=== PATIENT | male | born 1950 | race Caucasian/White ===

== ENCOUNTER 2019-05-28 08:47 | Inpatient (IN) ==
--- NOTE | 2019-05-25 08:27 | Anesthesiology Consultation ---
Date of Service May 25, 2019 Assessment & Plan (1) Encounter for pre-operative examination: PCP: 05/24/19: "cleared for surgery" Chart Review Chart Review: Acceptable Risk for Surgery (pending preop testing) and Patient NOT seen in Pre Admission Testing History Surgery Operation Date: 05/28/19 11:30 Proposed Procedures p Right Knee Removal of Antibiotic Spacer, Conversion Revision Arthroplasty - Cruz Byrnes Height/Weight Height: 6 ft Weight: 79.832 kg Allergies Allergy/AdvReac Type Severity Reaction Status Date / Time nafcillin Allergy Intermediate SWELLING Verified 05/24/19 14:07 Medications Home Medications Medication Instructions Recorded Confirmed Last Taken amlodipine [Norvasc] 2.5 mg PO QAM 05/24/19 05/24/19 Unknown aspirin 81 mg PO BID 05/24/19 05/24/19 Unknown docusate sodium [Stool Softener] 200 mg PO HS 05/24/19 05/24/19 Unknown ferrous sulfate [FeroSul] 325 mg PO DAILY 05/24/19 05/24/19 Unknown metoprolol succinate 12.5 mg PO BID 05/24/19 05/24/19 Unknown rosuvastatin [Crestor] 40 mg PO HS 05/24/19 05/24/19 Unknown Past Medical History Medical History Hyperlipidemia Hypertension Osteoarthritis Stroke 09/2017= no deficits Past Family History Family History Other No significant family history Past Surgical History Surgical History H/O knee surgery RT KNEE INFECTION POST TKA (CEMENT SPACER IN CURRENTLY) History of colonoscopy History of loop recorder implanted after stroke (09/2017)- no noted findings History of tonsillectomy History of tooth extraction History of total knee replacement RT/LEFT Social History Smoking Status: Former smoker tobacco type: cigarettes Do You Dip or Chew Tobacco: No Smoking End Date: 15 YEARS AGO Hx Alcohol Use: Yes Alcohol type: beer alcohol intake frequency: a few times a month Hx Substance Use: No substance use type: does not use
--- NOTE | 2019-05-26 13:42 | History & Physical Report ---
Date of Service May 26, 2019 Assessment & Plan (1) Infection of prosthetic knee joint: plan is to admit and remove spacer and conversion to right tka revision. will also do frozen sections at time of surgery. History of Present Illness Chief Complaint: right knee pain , s/p explant right tka for infection Primary Care Provider: Abimael Hoffyessica meenu male who had previous infection of right knee. currently has spacer in place which is static. had recent lab work and aspiration which were negative. He is now ready for removal of spacer and conversion to right tka, revision. Allergies Allergy/AdvReac Type Severity Reaction Status Date / Time nafcillin Allergy Intermediate SWELLING Verified 05/24/19 14:07 Home Medications Home Medications Medication Instructions Recorded Confirmed Type amlodipine [Norvasc] 2.5 mg PO QAM 05/24/19 05/24/19 History aspirin 81 mg PO BID 05/24/19 05/24/19 History docusate sodium [Stool Softener] 200 mg PO HS 05/24/19 05/24/19 History ferrous sulfate [FeroSul] 325 mg PO DAILY 05/24/19 05/24/19 History metoprolol succinate 12.5 mg PO BID 05/24/19 05/24/19 History rosuvastatin [Crestor] 40 mg PO HS 05/24/19 05/24/19 History Past Med/Surg History Medical History Hyperlipidemia Hypertension Osteoarthritis Stroke 09/2017= no deficits Surgical History H/O knee surgery RT KNEE INFECTION POST TKA (CEMENT SPACER IN CURRENTLY) History of colonoscopy History of loop recorder implanted after stroke (09/2017)- no noted findings History of tonsillectomy History of tooth extraction History of total knee replacement RT/LEFT Family History Other No significant family history Social History Preferred Language: Yi Communication Ability: Effective Jacquard Loom Card Changer Required: No Beliefs That Will Affect Care: None Current Living Situation: Spouse Feels Safe at Home: Yes Smoking Status: Former smoker Tobacco Type: cigarettes ; Second Hand Exposure: No ; Hx Alcohol Use: Yes Alcohol type: beer Hx Substance Use: No Review of Systems All systems reviewed & are unremarkable except as noted in HPI & below Physical Exam Constitutional: WD/WN, vitals as above Neck: trachea midline, no thyromegaly Respiratory: normal respiratory effort, lungs clear to auscultation Cardiovascular: RRR, no murmur, no edema Gastrointestinal (Abdomen): normal bowel sounds, soft, nontender, no hepatosplenomegaly Musculoskeletal: Knee: + surgical incision, + limited ROM of knee and + knee ROM with crepitation
[~2019-05-28 08:47] MED LIST: ACETAMINOPHEN 500 MG TAB PO SCH; BUPIVACAINE 0.5 % 5 MG/1 ML PF 10ML VIAL ONE; CEFAZOLIN 2000MG 2,000 MG/15 ML SYR IV SCH; CeleBREX 200 MG CAP PO SCH; FAMOTIDINE 20 MG TAB PO SCH; LIDOCAINE HCL 2% 2 ML VIAL/AMP(20MG/ML) INFIL ONE; LR 15ML/HR IV SCH; METOCLOPRAMIDE HCL 10 MG TABLET PO SCH; MIDAZOLAM HCL 1 MG/ML 2ML VIAL ONE; PHENYLEPHRINE 100MCG/ML 5ML SYR ONE; PROPOFOL IV EMULSION 10 MG/ML 20 ML VIAL IV ONE; ROPIVACAINE 0.5% HCL/PF 150 MG, BUPIVACAINE 0.5% MPF 30 ML, EPINEPHrine 30MG/30ML (OR U... INSTIL SCH; SODIUM CHLORIDE 0.9% 1,000 ML IV SCH; TRANEXAMIC ACID 1,000 MG **IV Intra-op IV SCH; TRANEXAMIC ACID 1,000 MG **IV Pre-op IV SCH; dexAMETHasone 4 MG TAB PO SCH; ePHEDrine sulfate 50 MG/ML SYR ONE; fentaNYL citrate 100 MCG/2 ML VIAL ONE
--- NOTE | 2019-05-28 09:15 | History & Physical Bridge Note ---
Date of Service May 28, 2019 History & Physical Bridge Note I have examined the patient, reviewed the History & Physical and in the interval since the performance of the History & Physical I have noted the following changes of clinical significance: no changes noted
[2019-05-28] MEDS ORDERED: BACITRACIN INJ 50,000 UNIT VIAL ONE (09:28)
[2019-05-28] MEDS ORDERED: ORTHO JOINT ANESTHETIC ONE (09:28)
[2019-05-28] MEDS ORDERED: ONDANSETRON INJ 2 MG/ML 2 ML VIAL IV PRN ×2 (09:52→13:23)
[2019-05-28] MEDS ORDERED: fentaNYL citrate 100 MCG/2 ML VIAL IV PRN (09:52)
[2019-05-28] MEDS ORDERED: ePHEDrine sulfate 50 MG/ML AMP IV PRN (09:52)
[2019-05-28] MEDS ORDERED: ATROPINE SULFATE 0.1 MG/ML 10ML SYR IV PRN (09:52)
[2019-05-28] MEDS ORDERED: VANCOMYCIN HCL 1 GM/270 ML BAG ONE (10:30)
[2019-05-28] MEDS ORDERED: VANCOMYCIN CONSULT ACTIVE PRN (10:31)
--- NOTE | 2019-05-28 12:16 | Post Operative Brief Note ---
Immediate Post Op Note v1 Date of Surgery May 28, 2019 Pre & Post Diagnosis Operation Date: 05/28/19 11:00 Pre-Op Diagnosis: Infection of prosthetic knee joint Post-Op Diagnosis: Infection of prosthetic knee joint I identified the patient and participated in the time-out.: Yes Procedure Operation Date: 05/28/19 11:00 Actual Procedures p Right Knee Removal of Antibiotic Spacer, Conversion Revision Total Knee Arthroplasty(Right) Both components - Cruz Byrnes Surgeon Cruz Byrnes Supervisor Records Change Juan Calle PAC Estimated Blood Loss 10 Findings Consistent with Post-Op Diagnosis Specimens 5 tissue samples sent for frozen section, all negative except one which had 6 wbc/hpf Anesthesia Type MAC Spinal Regional Complications none Disposition Disposition: Recovery Room
[2019-05-28] MEDS ORDERED: bisacodyL 10 MG SUPP PR PRN (13:23)
[2019-05-28] MEDS ORDERED: METOCLOPRAMIDE HCL INJ 5 MG/ML 2 ML VIAL IV PRN (13:23)
[2019-05-28] MEDS ORDERED: NALOXONE HCL 0.4 MG/1 ML VIAL/CARP IV PRN (13:23)
[2019-05-28] MEDS ORDERED: MAGNESIUM HYDROXIDE SUSP 30 ML UDC PO PRN (13:23)
[2019-05-28] MEDS ORDERED: HYDROmorphone INJ 0.5 MG/0.5 ML SYR IV PRN (13:25)
--- NOTE | 2019-05-28 13:55 | Anesthesiology Progress Note ---
Date of Service May 28, 2019 Anesthesia Post Procedure Vital Signs Vital Signs: Temp Pulse Pulse Resp BP BP Pulse Ox 05/28/19 13:50 75 19 103/65 100 05/28/19 13:40 74 16 112/72 100 05/28/19 13:30 73 15 115/69 100 05/28/19 13:20 68 16 100/62 100 05/28/19 13:10 70 19 97/63 L 100 05/28/19 13:03 98.1 F 73 20 106/66 100 05/28/19 09:57 79 20 121/81 100 Pain Intensity Right Knee: Pain Intensity: 0 Transfer of Care Handoff Completed per policy Notes Mental Status: alert / awake / arousable and participated in evaluation Patient Amnestic to Procedure: Yes Nausea / Vomiting: adequately controlled Pain: adequately controlled Airway Patency, RR, SpO2: stable & adequate BP & HR: stable & adequate Hydration State: stable & adequate Neuraxial Anesthesia: was administered and sensory block is resolving Anesthetic Complications: no major complications apparent and Pt Satisfied with anesthetic care
--- NOTE | 2019-05-28 14:06 | XRay Report ---
RIGHT KNEE 2 VIEWS History: Right total knee arthroplasty. Degenerative arthritis. Postop. FINDINGS: The patient is status post a right total knee arthroplasty. The hardware is intact. No frac ture or dislocation. Skin tg and surgical drains are in place. IMPRESSION: Right total knee arthroplasty. No evidence for hardware complication. Electronically signed by: Santiago Castro M.D. 05/28/2019 2:05 PM
[2019-05-28] MEDS: SODIUM CHLORIDE 0.9% 1000ML 1,000 ML IV SCH ×2 (15:00→23:28)
[2019-05-28] MEDS: ACETAMINOPHEN 500 MG TAB PO SCH ×2 (16:10→22:07)
[2019-05-28] MEDS: FERROUS GLUCONATE 324 MG TAB PO SCH (16:12)
[2019-05-28] MEDS: OXYCODONE HCL IR 5 MG TAB (IMMEDIATE RELEASE) PO PRN ×2 (16:43→21:12)
[2019-05-28] MEDS: CEFAZOLIN 2000MG 2,000 MG/15 ML SYR IV SCH (19:07)
[2019-05-28] MEDS ORDERED: SENNA 8.6 MG TAB PO SCH (21:00)
[2019-05-28] MEDS: ASPIRIN 81 MG ECTAB PO SCH (21:13)
[2019-05-28] MEDS: DOCUSATE SODIUM 100 MG CAP PO SCH (21:13)
[2019-05-29] MEDS: CEFAZOLIN 2000MG 2,000 MG/15 ML SYR IV SCH (02:51)
[2019-05-29] MEDS: OXYCODONE HCL IR 5 MG TAB (IMMEDIATE RELEASE) PO PRN ×2 (05:15→12:16)
[2019-05-29] MEDS: ACETAMINOPHEN 500 MG TAB PO SCH (05:17)
[2019-05-29 05:35] LABS: Hematocrit (blood only) 29.2 % (42-52); Hemoglobin 10.1 g/dL (14.0-18.0); Mean Corpuscular Hemoglobin 29.2 pg (25-34); Mean Corpuscular Hgb Conc 34.6 g/dL (32-36); Mean Corpuscular Volume 84.4 fL (80-100); Mean Platelet Volume 10.8 fL (7.4-10.4); Platelet Count 180 K/uL (130-400); RDW Coefficient of Variation 15.6 % (11.5-14.5); RDW Standard Deviation 48.3 fL (36.4-46.3); Red Blood Count 3.46 M/uL (4.7-6.1)
[2019-05-29] MEDS ORDERED: VANCOMYCIN HCL 1,000 MG/270 ML BAG IV SCH (06:00)
[2019-05-29 06:03] LABS: BUN Creatinine Ratio 18.1 (10-20); Calcium 8.7 mg/dl (8.5-10.1); Est GFR (Non-African American) 42.3; Potassium 4.6 mmol/L (3.5-5.1)
[2019-05-29] MEDS: ASPIRIN 81 MG ECTAB PO SCH (07:29)
[2019-05-29] MEDS: DOCUSATE SODIUM 100 MG CAP PO SCH (07:29)
[2019-05-29] MEDS: FERROUS GLUCONATE 324 MG TAB PO SCH (07:29)
--- NOTE | 2019-05-29 07:46 | Anesthesiology Progress Note ---
Date of Service May 29, 2019 Anesthesia Post Procedure Vital Signs Vital Signs: Temp Pulse Pulse Resp BP BP Pulse Ox 05/29/19 07:00 36.5 C 81 16 145/80 H 100 05/29/19 03:00 36.5 C 75 16 127/75 99 05/28/19 23:55 36.9 C 85 18 118/69 98 05/28/19 20:10 36.7 C 88 18 115/76 100 05/28/19 17:30 36.7 C 83 18 116/75 100 05/28/19 16:29 36.5 C 70 18 118/74 100 05/28/19 15:33 37.4 C 75 18 103/63 100 05/28/19 15:05 36.4 C L 73 16 115/69 100 05/28/19 14:37 36.6 C 78 18 108/63 100 05/28/19 14:15 77 16 117/67 99 05/28/19 14:00 36.7 C 73 15 109/65 100 05/28/19 13:50 75 19 103/65 100 05/28/19 13:40 74 16 112/72 100 05/28/19 13:30 73 15 115/69 100 05/28/19 13:20 68 16 100/62 100 05/28/19 13:10 70 19 97/63 L 100 05/28/19 13:03 36.7 C 73 20 106/66 100 05/28/19 09:57 79 20 121/81 100 Pain Intensity Right Knee: Pain Intensity: 0 Notes Mental Status: alert / awake / arousable and participated in evaluation Patient Amnestic to Procedure: Yes Nausea / Vomiting: adequately controlled Pain: adequately controlled Airway Patency, RR, SpO2: stable & adequate BP & HR: stable & adequate Hydration State: stable & adequate Neuraxial Anesthesia: was administered and sensory block resolved Anesthetic Complications: no major complications apparent and Pt Satisfied with anesthetic care
--- NOTE | 2019-05-29 07:49 | Operative Report ---
DATE OF OPERATION: 05/28/2019 PREOPERATIVE DIAGNOSIS: Infection, right total knee. POSTOPERATIVE DIAGNOSIS: Infection, right total knee. PROCEDURE: Removal of antibiotic spacer and conversion to revision total knee replacement, both components. SURGEON: Dr. Justyn Byrnes DO FUNDRAISING MANAGER: Juan Whitmore PA-C. ANESTHESIA: Spinal. COMPLICATIONS: Zero. The patient tolerated the procedure well and transferred to recovery room in stable condition. Five frozen sections were sent for examination, four which were negative, five was positive for 6 white blood cells per high power field. IMPLANTS USED: Karlene triathlon TS size 6 femoral component with a 20 x 100 mm cemented stem, multiple augments distally and posteriorly. A size 6 universal baseplate with a size D metaphyseal augment and a size 13 TS insert and size 38 all poly patella. INDICATIONS: Mr. Dill is a pleasant male who complains of right knee pain. 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 He underwent an explantation of his right knee prosthesis and now scheduled for revision total knee arthroplasty. DESCRIPTION OF PROCEDURE: The patient was brought to the operating room, properly identified by myself and the OR staff. He was given a spinal anesthetic, placed on the operating table in a supine position. Tourniquet was applied to the right upper thigh. The right leg was then prepped and draped in standard orthopedic fashion. I made a standard midline approach of the old incision, dissected down through subcutaneous tissue. I then made large full thickness skin flaps both the medial and lateral side. Then perform a medial capsulotomy with the use of Bovie and knife. I was able to remove all the scar tissue from the medial and lateral gutters in order to help mobilize the patella. I then had to also perform a quadriceps snip of the quadriceps as well to help mobilize the patella laterally. Then removed all the static cement spacer from the right knee in its entirety. I performed a large synovectomy as well. Five frozen sections were sent for analysis. Then reamed the canal on both the femur and tibia to the appropriate depth and size. I made a cleanup cuts on the femur measured to be size 6. The size 6 guide was then put into place in approximately 3 degrees of external rotation with respect to the posterior condylar axis and parallel to the transepicondylar axis. Then continue with the tibia, made a clamp, cut on the tibia as well. Trial components were placed with great range of motion and very good stability and the patella did sublux slightly but was much better improved with a lateral release. I thoroughly irrigated the wound and impacted components in place using antibiotic cement. All excess cement was then removed, irrigated again, closed the capsule with a 0 Vicryl suture deep and #2-0 Vicryl and tg. A sterile dressing was applied. The patient was taken to the recovery room in stable condition. My PA assisted the entire case due to the complexity of the case. He was present during the positioning, prepping, draping and holding instruments throughout the entirety of this case. I attest to the content of the Intraoperative Record and any orders documented therein. Any exceptions are noted below. BALTAZAR
--- NOTE | 2019-05-29 08:25 | Orthopedic Progress Note ---
Date of Service May 29, 2019 Assessment & Plan (1) History of infection of total joint prosthesis of knee: Postop day 1 status post explant antibiotic spacer with implantation of revision right TKA. Begin PT and OT protocols. Weightbearing as tolerated with immobilizer on. He is allowed to have the immobilizer off while in bed. DVT prophylaxis with aspirin twice daily, SCDs. Pain management with acetaminophen, oxycodone, hydromorphone DC planning-patient is planning on home health services upon discharge. Subjective Patient sitting up in bed. Awake, alert. No complaints this morning. Pain is controlled. Denies shortness of breath, chest pain, lightheadedness. Physical Exam Physical Exam: Dressings are clean, dry, and intact. Calves are soft and nontender. Neurovascular is intact. Toes are mobile. Hemovac drainage was 100 mL's from the previous shift. Results & Data Vital Signs (Past 12 Hours) Vital Signs Temp Pulse Resp BP Pulse Ox 05/29/19 07:00 36.5 C 81 16 145/80 H 100 05/29/19 03:00 36.5 C 75 16 127/75 99 05/28/19 23:55 36.9 C 85 18 118/69 98 Laboratory Results Laboratory Results WBC 10.80 K/uL (4.8-10.8) 05/29/19 04:53 RBC 3.46 M/uL (4.7-6.1) L 05/29/19 04:53 Hgb 10.1 g/dL (14.0-18.0) L 05/29/19 04:53 Hct 29.2 % (42-52) L 05/29/19 04:53 MCV 84.4 fL (80-100) 05/29/19 04:53 MCH 29.2 pg (25-34) 05/29/19 04:53 MCHC 34.6 g/dL (32-36) 05/29/19 04:53 RDW Std Deviation 48.3 fL (36.4-46.3) H 05/29/19 04:53 RDW Coeff of Claudia 15.6 % (11.5-14.5) H 05/29/19 04:53 Plt Count 180 K/uL (130-400) 05/29/19 04:53 MPV 10.8 fL (7.4-10.4) H 05/29/19 04:53 Sodium 138 mmol/L (136-145) 05/29/19 04:53 Potassium 4.6 mmol/L (3.5-5.1) 05/29/19 04:53 Chloride 107 mmol/L (98-107) 05/29/19 04:53 Carbon Dioxide 21 mmol/L (21-32) 05/29/19 04:53 Anion Gap 10.0 (3-11) 05/29/19 04:53 BUN 30 mg/dl (7-18) H 05/29/19 04:53 Creatinine 1.66 mg/dl (0.6-1.4) H 05/29/19 04:53 Est Cr Clr Drug Dosing 48.0 ml/min 05/29/19 04:53 Est GFR ( Amer) 49.0 05/29/19 04:53 Est GFR (Non-Af Amer) 42.3 05/29/19 04:53 BUN/Creatinine Ratio 18.1 (10-20) 05/29/19 04:53 Glucose 122 mg/dl (70-99) H 05/29/19 04:53 Calcium 8.7 mg/dl (8.5-10.1) 05/29/19 04:53 Blood Type O Positive 05/28/19 09:20 Antibody Screen NEGATIVE 05/28/19 09:20 Crossmatch See Detail 05/28/19 09:20
[2019-05-29] MEDS ORDERED: MULTIVITAMIN TAB PO SCH (09:00)
--- NOTE | 2019-06-01 14:35 | Discharge Summary ---
Date of Service June 01, 2019 Admission HPI Per Admitting Provider meenu male who had previous infection of right knee. currently has spacer in place which is static. had recent lab work and aspiration which were negative. He is now ready for removal of spacer and conversion to right tka, revision. Admission Exam Per Admitting Provider Constitutional: WD/WN, vitals as above Neck: trachea midline, no thyromegaly Respiratory: normal respiratory effort, lungs clear to auscultation Cardiovascular: RRR, no murmur, no edema Gastrointestinal (Abdomen): normal bowel sounds, soft, nontender, no hepatosplenomegaly Musculoskeletal: Knee: + surgical incision, + limited ROM of knee and + knee ROM with crepitation Principal Diagnosis Status post infection right TKA Discharge Exam Subjective Patient sitting up in bed. Awake, alert. No complaints this morning. Pain is controlled. Denies shortness of breath, chest pain, lightheadedness. Physical Exam Physical Exam: Dressings are clean, dry, and intact. Calves are soft and nontender. Neurovascular is intact. Toes are mobile. Hemovac drainage was 100 mL's from the previous shift. Discharge Data Allergies Allergy/AdvReac Type Severity Reaction Status Date / Time nafcillin Allergy Intermediate SWELLING Verified 05/28/19 09:52 Consultations 05/28/19 13:24 Consult Case Management - Discharge Planning Routine Procedures Performed Operation Date: 05/28/19 11:00 Actual Procedures p Right Knee Removal of Antibiotic Spacer, Conversion Revision Arthroplasty(Right) - Cruz Hawk Ordered Studies 05/28/19 05:00 US - OR guided needle placemen Routine Hospital Course (1) History of infection of total joint prosthesis of knee: Patient was admitted on the above-noted date and had the above-noted surgery performed which tarda well. On his first postoperative day,He was sitting up in bed awake and alert. He had no complaints; pain was controlled. Denies shortness of breath, chest pain, lightheadedness. Dressings were clean, dry, and intact. Calves are soft nontender. Neurovascular was intact. Toes are mobile. Hemovac drainage was 100 mL from the previous shift. He was started on physical therapy and occupational therapy protocols. Weightbearing as tolerated with immobilizer on. He was continued on DVT prophylaxis and pain management. He was checked later that morning after PT and he was progressing well. Vital signs remained stable and he was afebrile. Hemoglobin was 10.1. He was remaining stable and was felt he be discharged home. Total Time Total Time Spent Total Time Spent (In Minutes): 5 Discharge Plan Discharge Items Patient Disposition: Home - Home Health Services Reason For Visit: Aftercare Following Joint Replacement Discharge Diagnosis: s/p infected right TKA /Revision R TKA Activity: Per Instructions section Weightbearing: Right weightbearing Weightbearing Comment: as tolerated with immobilzer. Non-emergency contact: Surgeon Call non-emergency contact if: your pain is not controlled, your temperature is above 101.5, your wound has increased redness and your wound has increased drainage Follow-up/Referrals: Abimael Burroughs [Primary Care Provider] - Diet: Regular Ambulatory Orders: Basic Metabolic Panel (Routine) Timeframe: 2 Days Location: Determined by Patient Ordered By: Juan Bourne Attending Provider Instructions: Please follow Dr. Hawk's total knee replacement instruction sheets as written. These will be given to at your time of discharge. You are allowed to remove the immobilizer while at rest. Plan to sleep with it on. A prescription has been sent with you for blood work to be drawn in a few days by [facility]. Results to be sent to your Primary Care Physician. Follow-up with Dr. Li in 2 weeks. Please call for appointment if one has not been made for you. [phone] Pending Studies at Discharge: Yes Studies:: Surgical cultures Pathology report Stand-Alone Forms: [facility], Opioid Pain Management, Smoking Cessation Medications and DC Order Prescriptions: New aspirin [Ecotrin Low Strength] 81 mg Tablet,Delayed Release (Dr/Ec) 81 mg PO BID 30 Days Qty: 60 RF: 0 acetaminophen [Tylenol Extra Strength] 500 mg Tablet 1,000 mg PO Q8 14 Days Qty: 84 RF: 0 doxycycline hyclate 100 mg capsule 100 mg PO BID 42 Days Qty: 84 RF: 1 oxycodone 5 mg Tablet 5 mg PO Q4H PRN (Reason: pain) Qty: 18 RF: 0 Continued amlodipine [Norvasc] 2.5 mg Tablet 2.5 mg PO QAM RF: 0 ferrous sulfate [FeroSul] 325 mg (65 mg iron) Tablet 325 mg PO DAILY RF: 0 metoprolol succinate 25 mg Tablet Extended Release 24 Hr 12.5 mg PO BID RF: 0 docusate sodium [Stool Softener] 100 mg Tablet 200 mg PO HS RF: 0 rosuvastatin [Crestor] 40 mg Tablet 40 mg PO HS RF: 0 Discontinued aspirin 81 mg Tablet,Delayed Release (Dr/Ec) 81 mg PO BID RF: 0 Discharge Orders: Discharge Order (Routine); Ordered 05/29/19 Ordered By: Juan Fox/Other Patient Handouts: Surgery Prevent DVT After Admission Data Admit Date/Time: 05/28/19 13:24 Attending Provider: Cruz Hawk Admit Provider: Cruz Hawk Primary Care Provider: Abimael Burroughs Other Providers: [facility],Home Healthcare Other Interventions: Discharge Summary Assessment (RN) Last Done: 05/29/19 09:48 DC Date/Time DO NOT enter until pt leaves facility: 05/29/19 14:02
== END 2019-05-29 14:02 | disposition home health service (06) | DRG 468 ==
LOC: ASU 08:47 → 3E 13:24

== ENCOUNTER 2019-09-24 08:53 | Inpatient (IN) ==
--- NOTE | 2019-09-19 14:06 | Anesthesiology Consultation ---
Date of Service September 19, 2019 Assessment & Plan (1) Encounter for pre-operative examination: S/P removal spacer, right total knee revision: SAB x1 attempt at L45 + PNB at [facility] Chart Review Chart Review: Acceptable Risk for Surgery (pending evaluation AM DOS) and Patient NOT seen in Pre Admission Testing History Surgery Operation Date: 09/24/19 10:30 Proposed Procedures p Left Knee Removal Antibiotic Spacer, Total Knee Revision Arthroplasty - Cruz Byrnes Height/Weight Height: 6 ft Weight: 88.904 kg Allergies Allergy/AdvReac Type Severity Reaction Status Date / Time nafcillin Allergy Intermediate SWELLING Verified 08/30/19 11:45 Medications Home Medications Medication Instructions Recorded Confirmed Last Taken docusate sodium [Stool Softener] 200 mg PO HS PRN 05/24/19 08/30/19 Unknown ferrous sulfate [FeroSul] 325 mg PO QAM 05/24/19 08/30/19 05/27/19 21:00 metoprolol succinate 12.5 mg PO BID 05/24/19 08/30/19 05/28/19 06:30 rosuvastatin [Crestor] 40 mg PO HS 05/24/19 08/30/19 05/27/19 21:00 oxycodone 5 mg PO Q4H PRN #18 tab 05/29/19 08/30/19 Unknown acetaminophen [Tylenol Extra 1,000 mg PO Q6H PRN 08/30/19 08/30/19 Unknown Strength] aspirin [Aspir-81] 81 mg PO QAM 08/30/19 08/30/19 Unknown doxycycline monohydrate 100 mg PO BID 08/30/19 08/30/19 Unknown Past Medical History Medical History CKD (chronic kidney disease) baseline creatinine 1.6 per chart review Hyperlipidemia Hypertension Osteoarthritis Stroke 09/2017= no deficits Past Family History Family History Other No significant family history Past Surgical History Surgical History (Updated 09/19/19 @ 14:05 by Juliet Sandoval) H/O knee surgery multiple right knee revisions x3 2/2 post-op knee infection (cement spacer in currently) Removal spacer, right total knee revision: SAB x1 attempt at L45 + PNB at [facility] History of colonoscopy History of loop recorder implanted after stroke (09/2017)- no noted findings/remains in place History of tonsillectomy History of tooth extraction History of total knee replacement RT/LEFT Social History Smoking Status: Former smoker tobacco type: cigarettes Do You Dip or Chew Tobacco: No Smoking End Date: QUIT 10 YRS AGO Hx Alcohol Use: Yes Alcohol type: beer alcohol intake frequency: a few times a week Hx Substance Use: No substance use type: does not use Testing Laboratory Results 09/05/19 WBC 8.5 H/H 13.7/40.3 PLATELETS 218 SODIUM 142 POTASSIUM 4.7 CHLORIDE 105 CO2 26 BUN 27 CREATININE 1.59 (GFR 45) GLUCOSE 125 Electrocardiogram Date: 05/24/19 Sinus arrhythmia at 77bpm. Chest X-Ray Date: 05/24/19 Findings: + NAD Echocardiogram Date: 09/29/18 LVEF 50 to 55%. Moderate LVH. Mild MR. Mild LAE. Mildly dilated aortic root. Small pericardial effusion. Left pleural effusion.
--- NOTE | 2019-09-23 19:54 | History & Physical Report ---
Date of Service September 23, 2019 Assessment & Plan (1) Infection of prosthetic knee joint: Plan is to admit and remove spacer and convert to revision left tka. History of Present Illness Chief Complaint: left knee pain Pleasant male who has had a knee spacer in for close to one year. The plan was to leave this in place for as long as he could. But its causing him pain and discomfort. We have discussed removing the spacer and convert to revision knee. Allergies Allergy/AdvReac Type Severity Reaction Status Date / Time nafcillin Allergy Intermediate SWELLING Verified 08/30/19 11:45 Home Medications Home Medications Medication Instructions Recorded Confirmed Type docusate sodium [Stool Softener] 200 mg PO HS PRN 05/24/19 08/30/19 History ferrous sulfate [FeroSul] 325 mg PO QAM 05/24/19 08/30/19 History metoprolol succinate 12.5 mg PO BID 05/24/19 08/30/19 History rosuvastatin [Crestor] 40 mg PO HS 05/24/19 08/30/19 History oxycodone 5 mg PO Q4H PRN #18 tab 05/29/19 08/30/19 Rx acetaminophen [Tylenol Extra 1,000 mg PO Q6H PRN 08/30/19 08/30/19 History Strength] aspirin [Aspir-81] 81 mg PO QAM 08/30/19 08/30/19 History doxycycline monohydrate 100 mg PO BID 08/30/19 08/30/19 History Past Med/Surg History Medical History CKD (chronic kidney disease) baseline creatinine 1.6 per chart review Hyperlipidemia Hypertension Osteoarthritis Stroke 09/2017= no deficits Surgical History (Updated 09/19/19 @ 14:05 by Juliet Sandoval) H/O knee surgery multiple right knee revisions x3 2/2 post-op knee infection (cement spacer in currently) Removal spacer, right total knee revision: SAB x1 attempt at L45 + PNB at [facility] History of colonoscopy History of loop recorder implanted after stroke (09/2017)- no noted findings/remains in place History of tonsillectomy History of tooth extraction History of total knee replacement RT/LEFT Family History Other No significant family history Social History Preferred Language: Spanish Communication Ability: Effective Doctor Of Podiatric Medicine Required: No Beliefs That Will Affect Care: None marital status: Current Living Situation: Spouse Feels Safe at Home: Yes Smoking Status: Former smoker Tobacco Type: cigarettes ; Second Hand Exposure: No ; Hx Alcohol Use: Yes Alcohol type: beer Hx Substance Use: No Review of Systems All systems reviewed & are unremarkable except as noted in HPI & below Physical Exam Constitutional: WD/WN, vitals as above Neck: trachea midline, no thyromegaly Respiratory: normal respiratory effort, lungs clear to auscultation Cardiovascular: RRR, no murmur, no edema Gastrointestinal (Abdomen): normal bowel sounds, soft, nontender, no hepatosplenomegaly Musculoskeletal: Knee: + surgical incision, + limited ROM of knee, + knee ROM with crepitation, + valgus laxity and + varus laxity
[~2019-09-24 08:53] MED LIST changes: -LIDOCAINE HCL 2% 2 ML VIAL/AMP(20MG/ML) INFIL ONE; -LR 15ML/HR IV SCH; +LR 500ML BOLUS, THEN 15ML/HR IV SCH; +LR 60ML/HR IV SCH; -MIDAZOLAM HCL 1 MG/ML 2ML VIAL ONE; -PHENYLEPHRINE 100MCG/ML 5ML SYR ONE; -PROPOFOL IV EMULSION 10 MG/ML 20 ML VIAL IV ONE; +ROPIVACAINE 0.5% 5 MG/ML 30 ML VIAL ONE; -SODIUM CHLORIDE 0.9% 1,000 ML IV SCH; +VANCOMYCIN HCL 1,000 MG/270 ML BAG IV SCH; -ePHEDrine sulfate 50 MG/ML SYR ONE; -fentaNYL citrate 100 MCG/2 ML VIAL ONE
[2019-09-24] MEDS ORDERED: PROPOFOL IV EMULSION 10 MG/ML 20 ML VIAL IV ONE ×2 (09:50→12:41)
[2019-09-24] MEDS ORDERED: LIDOCAINE HCL 2% 2 ML VIAL/AMP(20MG/ML) INFIL ONE (09:50)
[2019-09-24] MEDS ORDERED: fentaNYL citrate 100 MCG/2 ML VIAL ONE (09:50)
[2019-09-24] MEDS ORDERED: MIDAZOLAM HCL 1 MG/ML 2ML VIAL ONE ×2 (09:50→11:40)
[2019-09-24] MEDS ORDERED: VANCOMYCIN CONSULT ACTIVE PRN ×2 (10:18→14:50)
--- NOTE | 2019-09-24 10:21 | History & Physical Bridge Note ---
Date of Service September 24, 2019 History & Physical Bridge Note I have examined the patient, reviewed the History & Physical and in the interval since the performance of the History & Physical I have noted the following changes of clinical significance: no changes noted
[2019-09-24] MEDS ORDERED: GENTAMICIN SULFATE 80 MG in DEXTROSE 5% 100 ML IV SCH (10:30)
[2019-09-24] MEDS ORDERED: BACITRACIN INJ 50,000 UNIT VIAL ONE (10:36)
[2019-09-24] MEDS ORDERED: ORTHO JOINT ANESTHETIC ONE (10:36)
[2019-09-24] MEDS ORDERED: HYDROmorphone INJ 1 MG/ML SYRINGE IV PRN (10:57)
[2019-09-24] MEDS ORDERED: ePHEDrine sulfate 50 MG/ML AMP IV PRN (10:57)
[2019-09-24] MEDS ORDERED: PHENYLEPHRINE 100MCG/ML 5ML SYR IV PRN (10:57)
[2019-09-24] MEDS ORDERED: ATROPINE SULFATE 0.1 MG/ML 10ML SYR IV PRN (10:57)
[2019-09-24] MEDS ORDERED: ONDANSETRON INJ 2 MG/ML 2 ML VIAL IV PRN ×2 (10:57→14:50)
[2019-09-24] MEDS ORDERED: KETOROLAC 30 MG/ML VIAL IV PRN (10:57)
[2019-09-24] MEDS ORDERED: PHENYLEPHRINE 100MCG/ML 5ML SYR ONE (12:07)
--- NOTE | 2019-09-24 13:15 | Operative Report ---
Post Operative Report Pre & Post Diagnosis Operation Date: 09/24/19 11:40 Pre-Op Diagnosis: s/p infection left total knee; Painful articulating spacer left knee Post-Op Diagnosis: s/p infection left total knee; painful articulating spacer left knee I identified the patient and participated in the time-out.: Yes Procedure Operation Date: 09/24/19 11:40 Actual Procedures p Left Knee Removal Antibiotic Spacer, Total Knee Revision Arthroplasty Both componets (Left) - Cruz Byrnes Surgeon Cruz Byrnes Plant Taxonomist Juan Calle PAc Estimated Blood Loss 20 Findings Consistent with Post-Op Diagnosis Specimens 5 frozen sections sent to pathology for frozen exam. all 5 were 0-5 wbc /hpf. Complications none Disposition Disposition: Recovery Room Description of Procedure Pleasant male who is now over a year status post insertion of an antibiotic spacer of his left knee for a chronic infection. Patient has been doing very well with his left spacer which was an articulating spacer however becoming more painful over the last 3 to 4 months. We have already converted his right knee back to revision components and was very happy with that as well. Therefore patient want to proceed with revision left knee replacement and removal of the antibiotic spacer. Patient brought to the operating room properly identified by myself anesthesia nursing staff he was given a spinal anesthetic placed on the operating table in a supine position and a tourniquet turn was applied left upper thigh the legs and prepped and draped in standard orthopedic fashion. The main incision centered directly of the old incision then made full-thickness skin flaps on the medial and lateral side. Then performed a medial capsulotomy upon entering the knee there was nice clear fluid present in the knee. The tissue itself overall looks very good and with the use of multiple osteotomes and rongeurs I was able to easily remove the articulating spacer of the knee. Fortunately there was very good bone stock remaining not much bone loss throughout the knee on the femur or the tibia. Most the bone loss actually occurred in the patella. Did a thorough debridement of all the gutters of both medial and lateral is also helped to free up the patella somewhat as well. Also removed any tissue from the suprapatellar pouch. Then started the femur reamed to the appropriate size made the appropriate distal cuts and posterior cuts with good clean healthy bone. We also used a metaphyseal augment from [employer]. Then continue with the tibia reamed the appropriate size made a nice cleanup cut on the tibia. Also size it for a metaphyseal augment as well. Put trial components in place we had very good range of motion very good stability and the patella was tracking nicely but at times could slide lateral. Unfortunately his kneecap has been laterall for quite some time. We did the way with that head went and removed all the trial components thoroughly irrigated the wound again then inserted the components into place with cementation, all excess cement was then and removed all excess cement ,irrigated again then closed the capsule with an 0 Vicryl suture deep dermis #2 Vicryl suture, the final skin layer closed with tg ,Steris were applied and patient taken to the recovery room in stable condition. Implants used were a Karlene size 6 TS femoral component with a 20 x 100 mm cemented stem and a size 5 metaphyseal femoral augment. There were multiple augments present on the femoral component both distally and posteriorly. Tibia was a size 6 as well universal baseplate, with a 12 x 75 mm stem cemented in a size D metaphyseal augment, and a size 11 TS insert. . Due to the complex nature of the procedure, the entire surgery was performed with the operational assistance of Juan Whitmore PA-C. The assistant manager airside operations was under direct supervision, was involved in the actual performance of all aspects of the surgical procedure including hemostasis, tissue retraction and incision, instrument management, patient positioning, and wound closure. I attest to the content of the Intraoperative Record and any orders documented therein. Any exceptions are noted below.
[2019-09-24] MEDS ORDERED: NALOXONE HCL 0.4 MG/1 ML VIAL/CARP IV PRN (14:50)
[2019-09-24] MEDS ORDERED: MAGNESIUM HYDROXIDE SUSP 30 ML UDC PO PRN (14:50)
[2019-09-24] MEDS ORDERED: bisacodyL 10 MG SUPP PR PRN (14:50)
[2019-09-24] MEDS ORDERED: METOCLOPRAMIDE HCL INJ 5 MG/ML 2 ML VIAL IV PRN (14:50)
--- NOTE | 2019-09-24 15:14 | Anesthesiology Progress Note ---
Date of Service September 24, 2019 Anesthesia Post Procedure Vital Signs Vital Signs: Temp Pulse Pulse Pulse Resp BP Pulse Ox 09/24/19 15:13 36.5 C 77 16 113/72 100 09/24/19 14:40 36.5 C 76 16 118/73 99 09/24/19 14:25 75 12 106/68 100 09/24/19 14:15 36.4 C L 74 16 126/74 100 09/24/19 14:05 72 16 119/73 100 09/24/19 13:55 73 12 116/72 100 09/24/19 13:47 36.3 C L 77 12 120/79 100 09/24/19 09:29 36.5 C 71 18 134/83 99 Pain Intensity Left Knee: Pain Intensity: 5 Transfer of Care Handoff Completed per policy Notes Mental Status: alert / awake / arousable Patient Amnestic to Procedure: Yes Nausea / Vomiting: adequately controlled Pain: adequately controlled Airway Patency, RR, SpO2: stable & adequate BP & HR: stable & adequate Hydration State: stable & adequate Neuraxial Anesthesia: was administered and sensory block is resolving Anesthetic Complications: no major complications apparent
[2019-09-24] MEDS: SODIUM CHLORIDE 0.9% 1000ML 1,000 ML IV SCH (19:27)
[2019-09-24] MEDS: DOCUSATE SODIUM 100 MG CAP PO SCH (20:58)
[2019-09-24] MEDS: ASPIRIN 81 MG ECTAB PO SCH (20:59)
[2019-09-24] MEDS: ACETAMINOPHEN 500 MG TAB PO SCH (21:00)
[2019-09-24] MEDS ORDERED: SENNA 8.6 MG TAB PO SCH (21:00)
[2019-09-24] MEDS: OXYCODONE HCL IR 5 MG TAB (IMMEDIATE RELEASE) PO PRN (22:30)
[2019-09-24] MEDS ORDERED: VANCOMYCIN HCL 1,250 MG in SODIUM CHLORIDE 0.9% 250 ML IV SCH (23:00)
[2019-09-25] MEDS: SODIUM CHLORIDE 0.9% 1000ML 1,000 ML IV SCH (00:57)
[2019-09-25] MEDS: OXYCODONE HCL IR 5 MG TAB (IMMEDIATE RELEASE) PO PRN ×2 (03:20→11:10)
[2019-09-25 05:36] LABS: Hematocrit (blood only) 33.6 % (42-52); Hemoglobin 11.3 g/dL (14.0-18.0); Mean Corpuscular Hemoglobin 30.1 pg (25-34); Mean Corpuscular Hgb Conc 33.6 g/dL (32-36); Mean Corpuscular Volume 89.6 fL (80-100); Mean Platelet Volume 11.1 fL (7.4-10.4); Platelet Count 161 K/uL (130-400); RDW Coefficient of Variation 14.1 % (11.5-14.5); RDW Standard Deviation 46.4 fL (36.4-46.3); Red Blood Count 3.75 M/uL (4.7-6.1); White Blood Count 12.75 K/uL (4.8-10.8)
[2019-09-25] MEDS: ACETAMINOPHEN 500 MG TAB PO SCH (05:38)
[2019-09-25 06:08] LABS: BUN Creatinine Ratio 16.1 (10-20); Calcium 8.4 mg/dl (8.5-10.1); Creatinine Clr Calc Pharmacy 57.8 ml/min; Est GFR (African American) 61.3; Est GFR (Non-African American) 52.9; Potassium 4.5 mmol/L (3.5-5.1)
--- NOTE | 2019-09-25 08:04 | Anesthesiology Progress Note ---
Date of Service September 25, 2019 Anesthesia Post Procedure Vital Signs Vital Signs: Temp Pulse Pulse Pulse Resp BP Pulse Ox 09/25/19 07:45 36.6 C 79 16 107/67 98 09/25/19 03:13 36.8 C 76 16 116/70 97 09/24/19 22:52 36.6 C 84 18 104/66 98 09/24/19 21:20 36.6 C 87 18 109/68 98 09/24/19 17:43 36.8 C 98 H 18 119/74 98 09/24/19 16:40 36.7 C 99 H 18 113/66 98 09/24/19 15:40 36.8 C 81 18 120/77 98 09/24/19 15:13 36.5 C 77 16 113/72 100 09/24/19 14:40 36.5 C 76 16 118/73 99 09/24/19 14:25 75 12 106/68 100 09/24/19 14:15 36.4 C L 74 16 126/74 100 09/24/19 14:05 72 16 119/73 100 09/24/19 13:55 73 12 116/72 100 09/24/19 13:47 36.3 C L 77 12 120/79 100 09/24/19 09:29 36.5 C 71 18 134/83 99 Pain Intensity Left Knee: Pain Intensity: 2 Notes Mental Status: alert / awake / arousable and participated in evaluation Patient Amnestic to Procedure: Yes Nausea / Vomiting: adequately controlled Pain: adequately controlled Airway Patency, RR, SpO2: stable & adequate BP & HR: stable & adequate Hydration State: stable & adequate Neuraxial Anesthesia: was administered and sensory block resolved Anesthetic Complications: no major complications apparent and Pt Satisfied with anesthetic care
--- NOTE | 2019-09-25 08:45 | Orthopedic Progress Note ---
Date of Service September 25, 2019 Assessment & Plan (1) History of infection of total joint prosthesis of knee: Postop day 1 status post removal of antibiotic articulating spacer and revision left TKA status post TKA infection PT/OT protocol. Weightbearing as tolerated. DVT prophylaxis-aspirin 81 mg p.o. twice daily, SCDs. Pain management-p.o. acetaminophen, oxycodone, IV hydromorphone, IV Toradol DC planning-patient is planning for home health services upon discharge. Admission and Anticipated Discharge Date Admission Date: September 24, 2019 Subjective Postop day 1 Patient is currently lying in bed doing his bedside exercises. No complaints this morning. Pain is controlled. He denies any shortness of breath, chest pain, lightheadedness. Physical Exam Physical Exam: Dressings are clean, dry, and intact. Calves are soft and nontender. Neurovascular is intact. Toes are mobile. He has good dorsiflexion and plantarflexion of the left foot and ankle. Hemovac has been emptied for 100 mL of drainage from the previous shift. Results & Data ([facility]) Vital Signs (Past 12 Hours) Vital Signs Temp Pulse Resp BP Pulse Ox 09/25/19 07:45 36.6 C 79 16 107/67 98 09/25/19 03:13 36.8 C 76 16 116/70 97 09/24/19 22:52 36.6 C 84 18 104/66 98 09/24/19 21:20 36.6 C 87 18 109/68 98 Laboratory Results Laboratory Results WBC 12.75 K/uL (4.8-10.8) H 09/25/19 04:58 RBC 3.75 M/uL (4.7-6.1) L 09/25/19 04:58 Hgb 11.3 g/dL (14.0-18.0) L 09/25/19 04:58 Hct 33.6 % (42-52) L 09/25/19 04:58 MCV 89.6 fL (80-100) 09/25/19 04:58 MCH 30.1 pg (25-34) 09/25/19 04:58 MCHC 33.6 g/dL (32-36) 09/25/19 04:58 RDW Std Deviation 46.4 fL (36.4-46.3) H 09/25/19 04:58 RDW Coeff of Claudia 14.1 % (11.5-14.5) 09/25/19 04:58 Plt Count 161 K/uL (130-400) 09/25/19 04:58 MPV 11.1 fL (7.4-10.4) H 09/25/19 04:58 Sodium 139 mmol/L (136-145) 09/25/19 04:58 Potassium 4.5 mmol/L (3.5-5.1) 09/25/19 04:58 Chloride 110 mmol/L (98-107) H 09/25/19 04:58 Carbon Dioxide 23 mmol/L (21-32) 09/25/19 04:58 Anion Gap 6.0 (3-11) 09/25/19 04:58 BUN 22 mg/dl (7-18) H 09/25/19 04:58 Creatinine 1.38 mg/dl (0.6-1.4) 09/25/19 04:58 Est Cr Clr Drug Dosing 57.8 ml/min 09/25/19 04:58 Est GFR ( Amer) 61.3 09/25/19 04:58 Est GFR (Non-Af Amer) 52.9 09/25/19 04:58 BUN/Creatinine Ratio 16.1 (10-20) 09/25/19 04:58 Glucose 113 mg/dl (70-99) H 09/25/19 04:58 Calcium 8.4 mg/dl (8.5-10.1) L 09/25/19 04:58 Blood Type O Positive 09/24/19 09:52 Antibody Screen NEGATIVE 09/24/19 09:52 Crossmatch See Detail 09/24/19 09:52 Draw and Hold Cancelled 09/24/19 09:52
[2019-09-25] MEDS: DOCUSATE SODIUM 100 MG CAP PO SCH (08:48)
[2019-09-25] MEDS: ASPIRIN 81 MG ECTAB PO SCH (08:48)
[2019-09-25] MEDS ORDERED: MULTIVITAMIN TAB PO SCH (09:00)
--- NOTE | 2019-09-25 12:16 | Discharge Summary ---
Date of Service September 25, 2019 Admission HPI Per Admitting Provider Kerrie male who has had a knee spacer in for close to one year. The plan was to leave this in place for as long as he could. But its causing him pain and discomfort. We have discussed removing the spacer and convert to revision knee. Admission Exam Per Admitting Provider Constitutional: WD/WN, vitals as above Neck: trachea midline, no thyromegaly Respiratory: normal respiratory effort, lungs clear to auscultation Cardiovascular: RRR, no murmur, no edema Gastrointestinal (Abdomen): normal bowel sounds, soft, nontender, no hepatosplenomegaly Musculoskeletal: Knee: + surgical incision, + limited ROM of knee, + knee ROM with crepitation, + valgus laxity and + varus laxity Principal Diagnosis Status post left TKA infection with implantation of antibiotic spacer Discharge Data Allergies Allergy/AdvReac Type Severity Reaction Status Date / Time nafcillin Allergy Intermediate SWELLING Verified 08/30/19 11:45 Consultations 09/24/19 14:50 Consult Case Management - Discharge Planning Routine Procedures Performed Operation Date: 09/24/19 11:40 Actual Procedures p Left Knee Removal Antibiotic Spacer, Total Knee Revision Arthroplasty(Left) - Cruz Byrnes Ordered Studies 09/24/19 05:00 US - OR guided needle placemen Routine Hospital Course (1) Infection of prosthetic knee joint: Assessment & Plan (1) History of infection of total joint prosthesis of knee: Postop day 1 status post removal of antibiotic articulating spacer and revision left TKA status post TKA infection PT/OT protocol. Weightbearing as tolerated. DVT prophylaxis-aspirin 81 mg p.o. twice daily, SCDs. Pain management-p.o. acetaminophen, oxycodone, IV hydromorphone, IV Toradol DC planning-patient is planning for home health services upon discharge. Admission and Anticipated Discharge Date Admission Date: September 24, 2019 Subjective Postop day 1 Patient is currently lying in bed doing his bedside exercises. No complaints this morning. Pain is controlled. He denies any shortness of breath, chest pain, lightheadedness. Physical Exam Physical Exam: Dressings are clean, dry, and intact. Calves are soft and nontender. Neurovascular is intact. Toes are mobile. He has good dorsiflexion and plantarflexion of the left foot and ankle. Hemovac has been emptied for 100 mL of drainage from the previous shift. Patient continue remained stable and progressed well with his physical therapy. Vital signs were stable checking back with him prior to lunchtime, he stated that he had ambulated the hallways independently with a walker twice and went up and down a flight of stairs. He was otherwise progressing well and was felt to be discharged home with home health services. He was discharged home with his Hemovac drain present and original dressing on to be taken care of by home health services. Results & Data ([facility]) Vital Signs (Past 12 Hours) Vital Signs Temp Pulse Resp BP Pulse Ox 09/25/19 07:45 36.6 C 79 16 107/67 98 09/25/19 03:13 36.8 C 76 16 116/70 97 09/24/19 22:52 36.6 C 84 18 104/66 98 09/24/19 21:20 36.6 C 87 18 109/68 98 Laboratory Results Laboratory Results WBC 12.75 K/uL (4.8-10.8) H 09/25/19 04:58 RBC 3.75 M/uL (4.7-6.1) L 09/25/19 04:58 Hgb 11.3 g/dL (14.0-18.0) L 09/25/19 04:58 Hct 33.6 % (42-52) L 09/25/19 04:58 Total Time Total Time Spent Total Time Spent (In Minutes): 5 Discharge Plan Discharge Items Patient Disposition: Home - Home Health Services Reason For Visit: INFECTED POST OP LEFT KNEE REPLACEMENT Discharge Diagnosis: s/p Infected Left TKA Activity: Per Instructions section Weightbearing: Full weightbearing Weightbearing Comment: as tolerated with walker Non-emergency contact: Surgeon Call non-emergency contact if: your pain is not controlled, your temperature is above 101.5, your wound has increased redness and your wound has increased drainage Follow-up/Referrals: Ghulam Cheney MD [Primary Care Provider] - Diet: Regular Addtl Attending Provider Instructions: Please follow Dr Byrnes's Total Knee Arthroplasty instructions. They will be given to you upon your discharge. Your medications (pain medications) have been sent to your pharmacy prior to your surgery. Please call the office with any questions regarding them. JOAO dressing - This is a large suction dressing covering your incision. This will help pull any excess drainage from the wound and allow your incision to heal properly. You may shower with this if you can keep the unit outside of the shower. If any bleeding or leakage is noted please call your doctor's office. This will remain on your incision for 7 days and then should be removed. This can be done yourself or by the home nursing staff if applicable. The entire unit is disposable once removed. Once removed, keep incision clean and dry. If redness or drainage is noted, please call your surgeon. Follow up with Dr Byrnes in 2 weeks. Please call for an appointment if one has not been made for you. [phone] Stand-Alone Forms: My [facility] [place] mySBX, Opioid Pain Management, Smoking Cessation Medications and DC Order Prescriptions: New aspirin [Ecotrin Low Strength] 81 mg Tablet,Delayed Release (Dr/Ec) 81 mg PO BID 30 Days Qty: 60 RF: 0 acetaminophen 500 mg Tablet 1,000 mg PO Q8 14 Days Qty: 84 RF: 0 Continued ferrous sulfate [FeroSul] 325 mg (65 mg iron) Tablet 325 mg PO QAM RF: 0 metoprolol succinate 25 mg Tablet Extended Release 24 Hr 12.5 mg PO BID RF: 0 docusate sodium [Stool Softener] 100 mg Tablet 200 mg PO HS PRN (Reason: Constipation) RF: 0 rosuvastatin [Crestor] 40 mg Tablet 40 mg PO HS RF: 0 doxycycline monohydrate 100 mg Capsule 100 mg PO BID RF: 0 Discontinued aspirin [Aspir-81] 81 mg Tablet,Delayed Release (Dr/Ec) 81 mg PO QAM RF: 0 acetaminophen [Tylenol Extra Strength] 500 mg Tablet 1,000 mg PO Q6H PRN (Reason: Pain) RF: 0 tramadol 50 mg Tablet 50 mg PO Q6H PRN (Reason: pain) RF: 0 Discharge Orders: Discharge Order (Routine); Ordered 09/25/19 Ordered By: Juan Fox/Other Patient Handouts: Surgery Prevent DVT After Admission Data Admit Date/Time: 09/24/19 13:47 Attending Provider: Cruz Byrnes Admit Provider: Cruz Byrnes Primary Care Provider: Ghulam Cheney Other Providers: [facility],Home Healthcare Other Interventions: Discharge Summary Assessment (RN) Last Done: 09/25/19 11:37
== END 2019-09-25 12:27 | disposition home health service (06) | DRG 468 ==
LOC: ASU 08:53 → 3E 13:47